=== PATIENT | male | born 1975 | race Two or more races ===

== ENCOUNTER 2023-07-11 18:14 | Emergency (ER) | payer OTHER ==
[~2023-07-11] VITALS: Ht 180.3 cm; Wt 115.5 kg
[2023-07-11] MEDS ORDERED: cloNIDine HCL 0.1 MG TAB PO ONE (18:30)
[2023-07-11 18:56] LABS: Basophils # (auto) 0 10 ^3/uL (0-0.2); Basophils % (auto) 0.6 % (0.0-2.0); Eosinophils # (auto) 0.2 10 ^3/uL (0-0.8); Eosinophils % (auto) 2.3 % (0.0-7.0); Hematocrit 50.3 % (41.0-53.0); Lymphocytes # (auto) 1.6 10 ^3/uL (0.4-5.4); Lymphocytes % (auto) 21.6 % (10.0-50.0); Mean Corpuscular Hemoglobin 29.9 pg (28.0-32.0); Mean Corpuscular Hgb Conc. 33.8 g/dL (32.0-36.0); Mean Corpuscular Volume 88.5 fL (80.0-100.0); Monocytes # (auto) 0.6 10 ^3/uL (0-1.3); Monocytes % (auto) 8.4 % (0.0-12.0); Neutrophils # (auto) 5.1 10 ^3/uL (1.6-8.6); Neutrophils % (auto) 67.1 % (37.0-80.0); Nucleated Red Blood Cells % 0.1 %; Red Blood Cells 5.68 10^6/uL (4.5-5.90); Red Cell Distribution Width 13.3 % (11.8-14.3); White Blood Cell 7.6 10^3/uL (4.4-10.8)
[2023-07-11 19:12] LABS: INR 1.03 (0.9-1.15); Partial Thromboplastin Time 26.9 SEC (24.5-34.5); Prothrombin Time 10.8 sec (9.3-11.8)
[2023-07-11 19:13] VITALS: PULSE 16; RESP 18; O2SAT 96
[2023-07-11 19:18] LABS: Albumin 3.8 g/dL (3.4-5.0); Anion Gap 5 (5-15); Blood Urea Nitrogen 18 mg/dL (7-18); Carbon Dioxide 31 mmol/L (21-32); Chloride 106 mmol/L (98-107); Glucose 87 mg/dL (74-106); Potassium 4.4 mmol/L (3.5-5.1); Sodium 142 mmol/L (136-145)
[2023-07-11 19:22] LABS: Alanine Aminotransferase 23 U/L (16-61); Alkaline Phosphatase 69 U/L (45-117); Aspartate Aminotransferase 10 U/L (15-37); BUN/Creatinine Ratio 18.6 (10.0-20.0); Bilirubin, Total 0.5 mg/dL (0.2-1.0); Blood Alcohol < 3.0 mg/dL (<10); GFR African American 107 mL/min; GFR Non-African American 89 mL/min; Total Protein 7.3 g/dL (6.4-8.2)
[2023-07-11] MEDS ORDERED: IOHEXOL 350 MG/ML 100ML IJ ONE (20:42)
[2023-07-11 20:55] VITALS: TEMP 98.2
[2023-07-11 20:58] LABS: Alcohol, Urine < 3.0 mg/dL (0-10); Amphetamine Screen, Urine POSITIVE (NEGATIVE); Barbiturate Scree,Urine NEGATIVE (NEGATIVE); Benzodiazephine Screen, Urine NEGATIVE (NEGATIVE); Cannabinoid Screen, Urine NEGATIVE (NEGATIVE); Cocaine Screen, Urine NEGATIVE (NEGATIVE); Opiate Scree,Urine NEGATIVE (NEGATIVE); Phencyclidine Screen, Urine NEGATIVE (NEGATIVE)
[2023-07-11] MEDS ORDERED: hydrALAZINE HCL 20 MG/ML VL IV ONE (21:00)
[2023-07-11 22:15] VITALS: BP 131/91; PULSE 100; RESP 20; O2SAT 98
== END 2023-07-11 22:22 | disposition home or self-care (01) ==
LOC: ER 18:14
DX: I16.0 Hypertensive urgency (principal); R42 Dizziness and giddiness; F15.10 Other stimulant abuse, uncomplicated; F17.210 Nicotine dependence, cigarettes, uncomplicated; F12.90 Cannabis use, unspecified, uncomplicated; Z98.890 Other specified postprocedural states
CPT/HCPCS: 36415; 70450; 80053; 80307; 80320; 84484; 85025; 85610; 85730; 93005; 96374; 99285; J0360; Q9967